=== PATIENT | male | born 1950 | race Caucasian/White ===

== ENCOUNTER 2024-12-31 11:19 | Day surgery (SDC) | payer MEDICARE ==
--- NOTE | 2024-12-24 15:03 | ELECTROCARDIOGRAPH REPORT ---
[facility] Test Date: 2024-12-24 Test Time: 15:00:34 Pat Name: YOVANY ALVARENGA Department: [facility]-PRE-OP Patient ID: [id number] Room: Gender: M [employer] Consumer Service: : 1950 Requested By: DANAY NORTON Order Number: [id number] Reading MD: Dr. NICHOL Padilla Measurements Intervals [place] Rate: 55 P: 68 [place]: 191 QRS: 61 QRSD: 84 T: 61 QT: 409 QTc: 392 Interpretive Statements Sinus bradycardia Electronically Signed On 12-24-2024 17:27:[address] NICHOL Padilla Please click the below link to view image of tracing.
[2024-12-24 15:20] LABS: MEAN PLATELET VOLUME 7.0 FL (7.4-10.4); PRE OP HEMATOCRIT 42.9 % (42.0-52.0); PRE OP HEMOGLOBIN 14.9 g/dL (14.0-17.9); PRE OP PLATELET COUNT 232 X10'3 (140-440); PRE OP WHITE BLOOD COUNT 9.9 10'3 (4.8-10.8); RED CELL DISTRIBUTION WIDTH 13.5 % (11.5-14.5)
[2024-12-24 15:37] LABS: CREATININE 1.04 MG/DL (0.60-1.10); PRE OP ALT 35 U/L (30-65); PRE OP ANION GAP 8 (8-16); PRE OP AST 28 U/L (10-37); PRE OP BILIRUB, TOTAL 0.7 MG/DL (0.0-1.0); PRE OP GLUCOSE 92 MG/DL (70-104); PRE OP POTASSIUM 4.0 MMOL/L (3.4-5.1); PRE OP SODIUM 137 MMOL/L (135-145); TOTAL CARBON DIOXIDE 24.5 MMOL/L (24-32); eGFR 69 ML/MIN
[~2024-12-31] VITALS: Ht 175.3 cm; Wt 87.4 kg
[2024-12-31] VITALS (15 sets, daily range): BP systolic 135–200; BP diastolic 72–126; PULSE 61–105; RESP 11–22; TEMP 97.9; O2SAT 94–99
[2024-12-31] MEDS: ceFAZolin 2gm/dext,iso 50mL 50 ML IV ONE (05:30)
[~2024-12-31 11:19] MED LIST: AMLO5TAB PO; BUPIVAcaine/PF 2.5mg/ml (0.25%) 10ml vial ONE; LIDOcaine 1% 30ml preserv. free vial ONE; RAMI5CAP71 PO; meperidine/PF 25mg/ml syringe IV PRN; ringers solution, lacted 1,000 ML IV SCH
[2024-12-31] MEDS: ringers solution, lacted 1,000 ML IV SCH (12:19)
[2024-12-31] MEDS ORDERED: fentaNYL /PF 50mcg/ml 5ml ampule ONE (13:56)
[2024-12-31] MEDS ORDERED: midazolam 1 mg/ML 2ml injection ONE (13:56)
[2024-12-31] MEDS ORDERED: LIDOcaine 2% (20mg/ml) 5ml vial ONE (14:03)
[2024-12-31] MEDS ORDERED: propofol inj 20 ML IV ONE (14:03)
[2024-12-31] MEDS ORDERED: dexamethasone sod phosphate 4mg/ml inj. ONE (14:03)
[2024-12-31] MEDS ORDERED: rocuronium 10mg/ml inj IV ONE (14:04)
[2024-12-31] MEDS ORDERED: ondansetron/PF 4mg/2ml inj ONE (14:04)
[2024-12-31] MEDS ORDERED: acetaminophen 1,000mg/100ml IV 100 ML IV ONE (15:15)
[2024-12-31] MEDS ORDERED: glycopyrrolate 0.2mg/ml inj ONE (15:33)
[2024-12-31] MEDS: labetalol 20mg/4ml (5mg/ml) syringe IV PRN (15:59)
[2024-12-31] MEDS: morphine 4 MG/ML inj SYRINge IV PRN (16:10)
[2024-12-31] MEDS ORDERED: HYDROcodone/acetaminophen 5mg/325mg tablet PO PRN (16:40)
[2024-12-31] MEDS: enalaprilat 1.25mg/ml 2ml vial IV PRN (16:41)
[2024-12-31] MEDS: ondansetron/PF 4mg/2ml inj IV PRN (18:08)
[2024-12-31] MEDS: LidoCAINE 2% Topical Jelly 11mL syringe (UROJET) TOP STA (18:33)
--- NOTE | 2024-12-31 22:49 | OPERATIVE REPORT ---
Operative Report Providers to CC: WALKER NORTON MD ~ Date of Procedure: Dec 31, 2024 Pre-Operative Diagnosis: Left inguinal hernia Post-Operative Diagnosis Bilateral inguinal hernias Procedure Performed Robotic assisted, laparoscopic bilateral inguinal hernia repair with mesh Surgeon: Walker Norton MD FACS Log Snaker None Anesthesiologist: Bruce Kamara Type of Anesthesia: General Findings: Very, very large indirect left inguinal hernia extending deep into the left hemiscrotum with the herniated sigmoid colon Small indirect right inguinal hernia Moderate-sized right femoral hernia Wound class I Complications None Prosthetics\Implants used: Bilateral large Dextile mesh Estimated Blood Loss: Minimal Specimen Removed: None Description of Procedure: Patient was brought to the operating room and identified by the nursing staff and the attending physician. Patient was placed supine and general anesthesia was induced. The patient's abdomen was prepped and draped in the standard sterile fashion. Preoperative antibiotics were given. Supraumbilical, midline incision was made to accommodate a 12 mm Helms port. Helms technique was used to gain access into the abdomen and the port was anchored to the fascia with 0 Vicryl suture. Abdomen was insufflated without incident. Laparoscope was inserted and the pelvis examined. Patient was placed in Trendelenburg position. Secondary, 8.5 mm robotic trochars were then placed in the right lateral left lateral upper abdomen just above the umbilical line. These were placed under laparoscopic guidance. Local anesthetic was infiltrated prior to their insertion. The da Arelis robotic arm was docked to the patient. Instruments were guided intra-abdominally under laparoscopic visualization. Peritoneal rent was created starting at the left anterior superior iliac spine and carried across the anterior abdominal wall to the contralateral anterior superior iliac spine. The peritoneal flap was created and carried down to the symphysis pubis. Dissection was carried out bilaterally. On the right, there was a moderate- sized femoral hernia as well as a small indirect inguinal hernia. These were both completely reduced. On the left, there was a very large indirect inguinal hernia. The sigmoid colon was herniated through this and the hernia sac, once reduced was very very large. It extended deep into the left hemiscrotum. It was completely reduced intact with only a small rent. Peritoneum was dissected away from the cord structures and out laterally to accommodate 2 separate pieces of large Dextile mesh. Bilateral critical views of the myopectineal orifice were obtained. Mesh and suture was passed into the abdomen. Bilateral mesh was placed covering potential obturator, femoral, direct, and indirect hernia spaces. Mesh was anchored at Harsha's ligament, rectus muscle in the midline, and out laterally just anterior to the anterior superior iliac spine. Mesh laid without wrinkles or folds. Peritoneal rent was then reapproximated with running, absorbable 2/0 V-lock suture. [place] were retrieved. Abdomen was allowed to desufflate after instruments removed and da Arelis robotic arm undocked from the patient. Umbilical port was removed as were the secondary trochars. The fascia at the umbilical port site was closed with 0 Vicryl sutures. Skin was closed at all sites with 4-0 Monocryl sutures in a subcuticular fashion. Sterile dressings were applied. Patient was awakened and taken to the postanesthesia care unit in stable condition. Counts repoted as correct: Yes WALKER NORTON MD Dec 31, 2024 22:49
== END 2024-12-31 19:34 | disposition home or self-care (01) ==
LOC: PRE-OP 11:19 → PAS 19:34
PROVIDERS: ATTEND Surgery
DX: K40.20 Bilateral inguinal hernia, without obstruction or gangrene, not specified as recurrent (principal); K41.90 Unilateral femoral hernia, without obstruction or gangrene, not specified as recurrent; Z79.899 Other long term (current) drug therapy; Z98.890 Other specified postprocedural states; Z88.2 Allergy status to sulfonamides; Z87.891 Personal history of nicotine dependence; I10 Essential (primary) hypertension; Z86.73 Personal history of transient ischemic attack (TIA), and cerebral infarction without residual deficits
CPT/HCPCS: 36415; 49650; 80053; 82948; 85025; 93005; A4215; A4314; A4615; A4618; C1781; J0131; J0780; J1100; J2003; J2175; J2250; J2270; J2405; J2704; J2710; J3010; J3490; J7030; J7120; Z7506; Z7508; Z7512; Z7610